=== PATIENT | female | born 1970 | race Caucasian/White ===

== ENCOUNTER 2016-11-20 16:27 | Emergency (ER) | payer OTHER ==
[2016-11-20] MEDS ORDERED: Sodium Chloride 0.9% 1000 ML 1,000 ML IV STA (17:09)
[2016-11-20] MEDS ORDERED: Phenergan 25 MG INJ IV ONE (17:09)
--- NOTE | 2016-11-20 17:12 | ERPHSYRPT ---
- History of Present Illness Time Seen by Provider: 11/20/16 17:10 Source: patient Exam Limitations: no limitations Patient Subjective Stated Complaint: pt states last night she began vomiting, also reports a cough and a runny nose. states she saw her regular family doctor monday for a cough and received rx for cough that is not helping. pt reports vomiting x10 throughout the night last night. has not vomited since 06. Triage Nursing Assessment: pt is aox3, pupils perrl, ambulatory to cot with no difficulties, resps are easy and non labored, radial pulses are strong and equal , skin is pink warm and dry. abd is soft and non tender. bowel sounds present and normoactive x4, denies any urinary or bowel difficulites. cap refill <3. Physician History: 46-year-old white female arrives with a cough for several days she states she was seen by her family doctor on Monday and given a cough medicine she states she's been vomiting since she states she vomited approximately 10 times last night she denies any fever cough is a nonproductive she has had a runny nose. Past medical history includes hyperthyroidism, tubal ligation, seasonal allergies Timing/Duration: day(s) (cough for 3-4 days) Severity: moderate Modifying Factors: Improves With: nothing Associated Symptoms: nausea, vomiting, abdominal pain Allergies/Adverse Reactions: Penicillins Allergy (Verified 11/20/16 16:56) Sulfa (Sulfonamide Antibiotics) Allergy (Verified 11/20/16 16:56) Home Medications: Albuterol 8 gm Mdi Hfa [Ventolin Hfa MDI] 18 gm IH Q4-6HPRN PRN 11/20/16 [ History] Atenolol 25 mg PO DAILY 11/20/16 [History] Atorvastatin Calcium [Lipitor] 20 mg PO HS 11/20/16 [History] Benzonatate [Tessalon Perle] 100 mg PO TID 11/20/16 [History] Fluticasone Propionate [Flonase NASAL] 1 spray INTRANASAL Q4-6HPRN PRN 12/27 [History] Loratadine 10 mg [Claritin 10 mg] 10 mg PO DAILY 11/20/16 [History] Methimazole 10 mg PO TID 11/20/16 [History] Trazodone HCl 50 mg [Desyrel 50 mg] 25 mg PO STAT 11/20/16 [History] Hx Tetanus, Diphtheria Vaccination/Date Given: Yes Hx Influenza Vaccination/Date Given: Yes Hx Pneumococcal Vaccination/Date Given: Yes Immunizations Up to Date: Yes - Review of Systems Constitutional: No Fever, No Chills, No Weight Loss Eyes: No Symptoms, No Discharge, No Eye Pain, No Eye Redness, No Itchy, No Photophobia, No Tearing, No Vision Changes, No Double Vision, No Foreign Body Sensation Ears, Nose, & Throat: Nose Discharge, Sinus Drainage, No Ear Pain, No Ear Discharge, No Hearing Changes, No Tinnitus, No Nose Pain, No Nose Congestion, No Epistaxis, No Mouth Pain, No Mouth Swelling, No Loose Teeth, No Throat Pain, No Throat Swelling, No Hoarse, No Painful Swallowing, No Snoring Respiratory: Cough Cardiac: No Chest Pain, No Edema, No Syncope Abdominal/Gastrointestinal: No Abdominal Pain, No Nausea, No Vomiting, No Diarrhea Genitourinary Symptoms: No Dysuria Musculoskeletal: No Back Pain, No Neck Pain Skin: No Symptoms Neurological: No Dizziness, No Focal Weakness, No Sensory Changes Psychological: No Symptoms Endocrine: No Symptoms All Other Systems: Reviewed and Negative - Past Medical History Pertinent Past Medical History: Yes Endocrine Medical History: Hyperthyroidism Other Medical History: seasonal allergies - Past Surgical History Past Surgical History: Yes Female Surgical History: Tubal Ligation - Social History Smoking Status: Current every day smoker Drug Use: none Patient Lives Alone: No - Female History Hx Last Menstrual Period: 2015 - menopause - Nursing Vital Signs Nursing Vital Signs: Initial Vital Signs Temperature 97.9 F 11/20/16 16:43 Pulse Rate 78 11/20/16 16:43 Respiratory Rate 20 11/20/16 16:43 Blood Pressure 125/42 11/20/16 16:43 O2 Sat by Pulse Oximetry 97 11/20/16 16:43 Pain Scale Pain Intensity 0 - Physical Exam General Appearance: mild distress Eye Exam: PERRL/EOMI, eyes nml inspection Ears, Nose, Throat Exam: normal ENT inspection, TMs normal, pharynx normal, moist mucous membranes Neck Exam: normal inspection, non-tender, supple, full range of motion Respiratory Exam: normal breath sounds, lungs clear, No respiratory distress Cardiovascular Exam: regular rate/rhythm, normal heart sounds, normal peripheral pulses Gastrointestinal/Abdomen Exam: soft, normal bowel sounds, No tenderness, No mass Back Exam: normal inspection, normal range of motion, No CVA tenderness, No vertebral tenderness Extremity Exam: normal inspection, normal range of motion, pelvis stable Neurologic Exam: alert, oriented x 3, cooperative, normal mood/affect, nml cerebellar function, nml station & gait, sensation nml, No motor deficits Skin Exam: normal color, warm, dry, No rash SpO2 Interpretation: normal (97%) SpO2: 97 Oxygen Delivery: Room Air - Course Nursing assessment & vital signs reviewed: Yes - Radiology Exams Chest X-ray Interpretation: Interpreted by me, Negative, No Pneumonia, No Pneumothorax , Other (no acute disease process noted) Ordered Tests: Active Orders 24 hr Category Date Time Status IV Insertion STAT Care 11/20/16 16:55 Active CHEST 1 VIEW (PORTABLE) Stat Exams 11/20/16 17:09 Completed AMYLASE Stat Lab 11/20/16 17:25 Completed CBC W DIFF Stat Lab 11/20/16 17:25 Completed CMP Stat Lab 11/20/16 17:25 Completed HCG QUALITATIVE,SERUM Stat Lab 11/20/16 17:25 Completed LIPASE Stat Lab 11/20/16 17:25 Completed T4 Stat Lab 11/20/16 17:25 Completed TSH, 3RD Generation Stat Lab 11/20/16 17:25 Completed Respiratory Nebulizer STAT RT 11/20/16 20:10 Active Medication Summary Discontinued Medications Generic Name Dose Route Start Last Admin Trade Name Freq PRN Reason Stop Dose Admin Albuterol/Ipratropium 3 ml 11/20/16 20:09 Duoneb 0.5-3 Mg/3 Ml Neb IH 11/20/16 20:10 STAT ONE Azithromycin 500 mg 11/20/16 20:10 11/20/16 20:19 Zithromax 250 Mg Tablet PO 11/20/16 20:11 500 mg STAT ONE Administration Azithromycin Confirm 11/20/16 20:17 Zithromax 250 Mg Tablet Administered 11/20/16 20:18 Dose 500 mg .ROUTE .STK-MED ONE Sodium Chloride 1,000 mls @ 999 mls/hr 11/20/16 17:09 11/20/16 17:32 Sodium Chloride 0.9% 1000 Ml IV 11/20/16 18:09 999 mls/hr .Q1H1M STA Administration Sodium Chloride Confirm 11/20/16 17:30 Sodium Chloride 0.9% 1000 Ml Administered 11/20/16 17:31 Dose 1,000 mls @ ud .ROUTE .STK-MED ONE Methylprednisolone Sodium Succinate 80 mg 11/20/16 20:09 11/20/16 20:19 Solu-Medrol 125 Mg IV 11/20/16 20:10 125 mg STAT ONE Administration Methylprednisolone Sodium Succinate Confirm 11/20/16 20:17 Solu-Medrol 125 Mg Administered 11/20/16 20:18 Dose 125 mg .ROUTE .STK-MED ONE Promethazine HCl 12.5 mg 11/20/16 17:11/20/16 17:32 Phenergan 25 Mg Inj IV 11/20/16 17:10 12.5 mg STAT ONE Administration Promethazine HCl Confirm 11/20/16 17:30 Phenergan 25 Mg Inj Administered 11/20/16 17:31 Dose 25 mg .ROUTE .STK-MED ONE Promethazine HCl Confirm 11/20/16 20:17 Phenergan 25 Mg Inj Administered 11/20/16 20:18 Dose 25 mg .ROUTE .STK-MED ONE Lab/Rad Data: Laboratory Result Diagrams 11/20/16 17:25 11/20/16 17:25 Laboratory Results 11/20/16 11/20/16 11/20/16 Range/Units 17:25 17:25 17:25 WBC 5.7 (4.0-10.5) K/mm3 RBC 5.01 (4.1-5.4) M/mm3 Hgb 14.5 (12.0-16.0) gm/dl Hct 42.8 (35-47) % MCV 85.4 (78-100) fl MCH 28.9 (26-32) pg MCHC 33.9 (32-36) g/dl RDW 14.4 H (11.5-14.0) % Plt Count 171 (150-450) K/mm3 MPV 10.8 H (6-9.5) fl Gran % 48.6 (36.0-66.0) % Lymphocytes % 38.3 (24.0-44.0) % Monocytes % 6.5 (0.0-12.0) % Eosinophils % 6.2 H (0.00-5.0) % Basophils % 0.4 (0.0-0.4) % Basophils # 0.02 (0-0.4) Sodium 143 (136-145) mEq/L Potassium 3.8 (3.5-5.1) mEq/L Chloride 105 (98-107) mEq/L Carbon Dioxide 24.9 (21-32) mEq/L Anion Gap 16.4 H (5-15) MEQ/L BUN 9 (9-20) mg/dL Creatinine 0.63 (0.55-1.30) mg/dl Estimated GFR > 60 ML/MIN Glucose 99 (70-110) MG/DL Calcium 9.6 (8.5-10.1) mg/dL Total Bilirubin 0.30 (0.2-1.0) mg/dL AST 43 H (15-37) U/L ALT 53 (12-78) U/L Alkaline Phosphatase 239 H (46-116) U/L Serum Total Protein 7.4 (6.4-8.2) gm/dL Albumin 3.7 (3.4-5.0) g/dL Amylase 67 (25-115) U/L Lipase 105 (73-393) U/L Thyroxine (T4) 16.1 (4.7-13.3) UG/DL TSH 3rd Generation < 0.007 L (0.358-3.740) mIU/L Serum , Qual NEGATIVE (Negative) - Progress Progress: improved Progress Note: 11/20/16 20:11 Patient is feeling better after 1 L of normal saline and Phenergan. Patient does have a few wheezes on recheck. Will go ahead and give patient Solu-Medrol 125 IV discharge with Zithromax prednisone. She states she has an inhaler at home. Will write forPhenergan for nausea and vomiting. - Departure Time of Disposition: 20:23 Departure Disposition: Home Clinical Impression: Bronchitis, Bronchospasm Vomiting Qualifiers: Vomiting type: unspecified Vomiting Intractability: non-intractable Nausea presence: with nausea Qualified Code(s): R11.2 - Nausea with vomiting, unspecified Condition: Fair Critical Care Time: No Referrals: Bianca Conrad MD [Primary Care Provider] - Additional Instructions: Return home. Plenty of fluids clear fluids only 24-48 hours if nausea and vomiting. Phenergan 25 mg one orally every 4-6 hours as needed for nausea and vomiting. Zithromax Z-Apolinar as directed. Follow-up with your family doctor. Use your inhaler as prescribed by your family doctor. Return for acute distress or for severe symptoms. follow-up with your family doctor concerning your thyroid level Prescriptions: Promethazine HCl 25 mg [Phenergan 25 mg] 25 mg PO Q4-6HPRN PRN #12 tablet PRN Reason: nausea and vomiting
[2016-11-20] MEDS ORDERED: Sodium Chloride 0.9% 1000 ML 1,000 ML ONE (17:30)
[2016-11-20] MEDS ORDERED: Phenergan 25 MG INJ ONE ×2 (17:30→20:17)
[2016-11-20 17:40] LABS: BASOPHIL % 0.4 % (0.0-0.4); Eosinophil % 6.2 % (0.00-5.0); Granulocytes % 48.6 % (36.0-66.0); Lymphocytes % 38.3 % (24.0-44.0); Mean Cell Volume 85.4 fl (78-100); Mean Corpuscular Hemoglobin 28.9 pg (26-32); Mean Platelet Volume 10.8 fl (6-9.5); Monocytes % 6.5 % (0.0-12.0); Platelet Count 171 K/mm3 (150-450); Red Blood Count 5.01 M/mm3 (4.1-5.4); Red Cell Distribution Width 14.4 % (11.5-14.0); White Blood Count 5.7 K/mm3 (4.0-10.5)
[2016-11-20 18:14] LABS: ALBUMIN 3.7 g/dL (3.4-5.0); ALKALINE PHOSPHATASE 239 U/L (46-116); ANION GAP 16.4 MEQ/L (5-15); BLOOD UREA NITROGEN 9 mg/dL (9-20); CHLORIDE 105 mEq/L (98-107); Carbon Dioxide 24.9 mEq/L (21-32); Glucose 99 MG/DL (70-110); LIPASE 105 U/L (73-393); Potassium 3.8 mEq/L (3.5-5.1); SGOT/AST 43 U/L (15-37); SGPT/ALT 53 U/L (12-78); SODIUM 143 mEq/L (136-145); Total Protein 7.4 gm/dL (6.4-8.2)
--- NOTE | 2016-11-20 20:02 | XRAY ---
Indication: Fever and cough. Comparison: None Portable chest demonstrates normal heart, lungs, and bony thorax.
[2016-11-20] MEDS ORDERED: solu-MEDROL 125 MG IV ONE (20:09)
[2016-11-20] MEDS ORDERED: DUONEB 0.5-3 MG/3 ml Neb IH ONE ×2 (20:09→20:41)
[2016-11-20] MEDS ORDERED: Zithromax 250 MG TABLET PO ONE (20:10)
[2016-11-20] MEDS ORDERED: Zithromax 250 MG TABLET ONE (20:17)
[2016-11-20] MEDS ORDERED: solu-MEDROL 125 MG ONE (20:17)
[2016-11-20 20:18] VITALS: O2SAT 97
[2016-11-20 20:56] VITALS: BP 106/60; PULSE 84
== END 2016-11-20 20:56 | disposition home or self-care (01) ==
LOC: ED 16:27
DX: J40 Bronchitis, not specified as acute or chronic (principal); J98.01 Acute bronchospasm; R11.2 Nausea with vomiting, unspecified
CPT/HCPCS: 36000; 36415; 71010; 80053; 82150; 83690; 84436; 84443; 84703; 85025; 94640; 96360; 96361; 96374; 96375; 99284; J2550; J2930; A9270-GY